=== PATIENT | female | born 1980 | race Caucasian/White ===

== ENCOUNTER 2022-03-28 19:08 | Inpatient (IN) | payer SELFPAY ==
[~2022-03-28] VITALS: Ht 162.6 cm; Wt 73.5 kg
[2022-03-28 19:12] VITALS: BP 147/89
--- NOTE | 2022-03-28 19:22 | NUR ---
STAT EKG in Triage room.
--- NOTE | 2022-03-28 19:27 | NUR ---
Given EKG to Dr. Arevalo to patrica.
--- NOTE | 2022-03-28 19:39 | NUR ---
PT TAKEN TO BED 5
--- NOTE | 2022-03-28 19:40 | NUR ---
RECEIVED IN BED 5 WITH C/O CP AND NOT GFEELING WELL X 3 DAYS. ATTACHED TO CM = SR OCCASIONAL PVC PMHx: Depression, Anxiety and HTN
--- NOTE | 2022-03-28 19:41 | NUR ---
Patient being evaluated by physician at bedside.
[2022-03-28] MEDS ORDERED: NITROGLYCERIN 2% 1 GM PKT TP ONE (19:45)
[2022-03-28] MEDS ORDERED: ASPIRIN 325 MG TAB PO ONE (19:45)
[2022-03-28] MEDS ORDERED: ENOXAPARIN 60 MG/0.6 ML SYR SUBQ ONE (19:45)
[2022-03-28] MEDS ORDERED: MORPHINE SULFATE 4 MG/ML SYR IVP ONE (19:45)
--- NOTE | 2022-03-28 20:09 | NUR ---
PCXR AT BEDSIDE
[2022-03-28 20:13] LABS: BASOPHILS # (AUTO) 0.1 K/uL (0.00-0.22); BASOPHILS % (AUTO) 0.7 % (0.0-2.0); EOSINOPHILS % (AUTO) 0.6 % (0.0-4.0); HEMATOCRIT 39.2 % (36-48); HEMOGLOBIN 13.6 g/dL (12.0-16.0); LYMPHOCYTES # (AUTO) 1.3 K/uL (2.5-16.5); LYMPHOCYTES % (AUTO) 18.7 % (20.5-51.1); MEAN CORPUSCULAR HEMOGLOBIN 37 pg (27-31); MEAN CORPUSCULAR HGB CONC 35 g/dL (33-37); MEAN CORPUSCULAR VOLUME 105.1 fL (80-94); MONOCYTES # (AUTO) 1.1 K/uL (0.8-1.0); MONOCYTES % (AUTO) 14.9 % (1.7-9.3); NEUTROPHILS # (AUTO) 4.6 K/uL (1.8-7.7); NEUTROPHILS % (AUTO) 65.1 % (42.2-75.2); PLATELET COUNT (AUTO) 237 K/uL (140-450); RED BLOOD CELL COUNT(AUTO) 3.73 MIL/uL (4.20-5.40); RED CELL DISTRIBUTION WIDTH 13.9 % (11.6-13.7)
[2022-03-28 20:26] LABS: CHOL/HDL RATIO 1.8 (1-4.5); HDL CHOLESTEROL 161 mg/dL (40-60); LDL (CALC) 117 mg/dL (60-100); TRIGLYCERIDES 61 mg/dL (30-150)
[2022-03-28 20:32] LABS: ALBUMIN 3.8 g/dL (3.4-5.0); ANION GAP 23.2 (8-16); CARBON DIOXIDE 20.8 mmol/L (21-32); CREATININE 0.8 mg/dL (0.6-1.3); TOTAL BILIRUBIN 0.6 mg/dL (0.0-1.0)
--- NOTE | 2022-03-28 22:30 | NUR ---
UP TO BSC, VOIDED, BACK TO BED
[2022-03-29] MEDS ORDERED: POTASSIUM CHLORIDE 10 MEQ TABER PO PRN
[2022-03-29] MEDS ORDERED: guaiFENesin DM 200/20 MG-10 ML 10 ML UDC PO PRN
[2022-03-29] MEDS ORDERED: ZOLPIDEM 5 MG TAB PO PRN
[2022-03-29] MEDS ORDERED: DOCUSATE SODIUM 100 MG GELCAP PO PRN
[2022-03-29] MEDS ORDERED: HYDROcodone/APAP 7.5/325 MG 1 TAB PO PRN
[2022-03-29] MEDS ORDERED: ACETAMINOPHEN 325 MG TAB PO PRN
--- NOTE | 2022-03-29 00:23 | NUR ---
CHANGED INTO GOWN, ASISTED WITH POSITIONING FOR COMFORT, WARM BLANKETS GIVEN. PT CONTINUES WITH C/O CHEST DISCOMFORT
--- NOTE | 2022-03-29 00:35 | NUR ---
C/O CONTINUED PAIN, MEDICATED ORDERED WITH NORCO 7.5
[2022-03-29] MEDS ORDERED: HYDROcodone/APAP 7.5/325 MG 1 TAB ONE (00:36)
[2022-03-29 00:47] LABS: PROTHROMBIN TIME 9.3 secs (10.8-13.4)
[2022-03-29 00:53] LABS: FREE T4 (FREE THYROXINE) 0.85 ng/dL (0.76-1.46); MAGNESIUM 1.6 mg/dL (1.8-2.4); PHOSPHORUS 1.6 mg/dL (2.5-4.9); THYROID STIMULATING HORMONE 5.39 uIU/mL (0.34-3.74)
--- NOTE | 2022-03-29 04:00 | NUR ---
AWAKE C/O NAUSEA, MEDICATED ORDERED
[2022-03-29] MEDS: ONDANSETRON 4 MG/2 ML VIAL IM/IVP PRN ×2 (05:16→09:22)
--- NOTE | 2022-03-29 06:00 | NUR ---
AWAKE, AMBULATED TO BR WITH STEADY GAIT
[2022-03-29] MEDS ORDERED: FLUO10CA21 PO (06:48)
[2022-03-29] MEDS ORDERED: LISI-487 PO (06:48)
--- NOTE | 2022-03-29 07:30 | NUR ---
REPORT RECEIVED FROM CORTES MARTELL. ASSUMED CARE AT THIS TIME
--- NOTE | 2022-03-29 08:00 | NUR ---
42YO FEMALE PT C/O SUDDEN CONSTANT TIGHT/BURNING 01/04 CHEST PAIN XYESTERDAY. STATES RELIEF SINCE BEING IN ER, PAIN PREVIOUSLY 04/06. ALSO C/O HEADACHE W/ MILD RELIEF AFTER TAKING TYLENOL. REPORTS N/V/D xYESTERDAY, DENIES BLOOD . DENIES PT AAOX4, RESPIRATIONS EVEN AND UNLABORED. HX: HTN ALLERGIES: PENICILLIN
--- NOTE | 2022-03-29 08:08 | NUR ---
pt provided w/ breakfast. pt awake and eating in bed
[2022-03-29] MEDS: NITROGLYCERIN 0.4 MG TAB SL PRN ×2 (08:33→08:44)
[2022-03-29] MEDS ORDERED: lisinopriL 5 MG TAB PO SCH (09:00)
[2022-03-29] MEDS ORDERED: METOPROLOL 25 MG TAB PO SCH (09:00)
[2022-03-29] MEDS ORDERED: ECOTRIN 81 MG TABEC PO SCH (09:00)
[2022-03-29] MEDS: PANTOPRAZOLE 40 MG TABEC PO SCH (09:10)
--- NOTE | 2022-03-29 09:14 | NUR ---
PATIENT HAS BEEN SCREENED AND CATEGORIZED MODERATE NUTRITION RISK. PATIENT WILL BE SEEN WITHIN 3-5 DAYS OF ADMISSION. 03/28/22-04/02/[address]
--- NOTE | 2022-03-29 11:13 | NUR ---
MD DONG AT BEDSIDE FOR EVALUATION
[2022-03-29] MEDS: ALPRAZolam 0.5 MG TAB PO PRN (11:52)
--- NOTE | 2022-03-29 13:00 | NUR ---
pt provided w/ lunch. pt awake, repositioned and eating in bed
[2022-03-29] MEDS: METOPROLOL 50 MG TAB PO SCH ×2 (13:55→21:20)
[2022-03-29] MEDS ORDERED: POTASSIUM CHLORIDE 10 MEQ TABER PO SCH ×2 (14:00→17:00)
--- NOTE | 2022-03-29 14:30 | NUR ---
per lani yee, would like like po potassium and dx. per md vallejo, consult but requesting we do not discharge.
--- NOTE | 2022-03-29 15:25 | NUR ---
Patient will be admitted to care of [facility]. Admited to TELE . Will go to room 119A. Belongings list completed. Report to ITALO MARTELL.
--- NOTE | 2022-03-29 15:35 | NUR ---
The patient's care was reviewed and supervised by Oksana Lujan, RN, RN.
[2022-03-29 16:45] VITALS: BP 164/83
[2022-03-29] MEDS ORDERED: ATORVASTATIN 20 MG TAB PO SCH (17:00)
--- NOTE | 2022-03-29 19:30 | NUR ---
RECEIVED PATIENT FROM DAY SHIFT NURSE ITALO. PATIENT IS A&O X4. PATIENT IS ON ROOM AIR, BREATHING IS NORMAL WITH SYMMETRICAL RISE AND FALL OF CHEST. IV IS 20G LAC, NO FLUIDS RUNNING (SALINE LOCKED). PATIENT IS AWAKE, LYING IN BED SUPINE. BED IS IN LOWEST POSITION, WHEELS LOCKED, CALL LIGHT IN PLACE. WILL CONTINUE TO OBSERVE PATIENT.
[2022-03-29 20:00] VITALS: BP 163/85
--- NOTE | 2022-03-29 21:30 | NUR ---
ADMINISTERED 2100 MEDICATION TO PATIENT. PATIENT'S HR WAS 63 AND BP WAS 163/85. MEDICATION IS APPROPRIATE TO GIVE. PATIENT TOLERATED MEDICATION WELL. PATIENT STATED THAT SHE WILL TRY AND GO TO SLEEP. BREATHING WAS NORMAL WITH SYMMETRICAL RISE AND FALL OF CHEST. WILL CONTINUE TO OBSERVE PATIENT.
[2022-03-30] VITALS: BP 165/79
--- NOTE | 2022-03-30 | NUR ---
0000 VITALS WERE OBTAINED BY DARREN FLEMING. VITALS WERE: TEMP 98.1, HR 110, BP 165/79, O2 98, RR 18. LOOKED IN ON PATIENT AT 2230, INFORMED PATIENT TO VOID IN URINE CUP NEXT TIME SHE URINATES FOR URINE ANALYSIS. PATIENT STATED SHE WOULD. WILL CONTINUE TO OBSERVE PATIENT.
--- NOTE | 2022-03-30 02:00 | NUR ---
LOOKED IN ON PATIENT. PATIENT WAS SLEEPING. URINE CUP WAS STILL BY PATIENT'S BEDSIDE. PATIENT'S BREATHING WAS NORMAL WITH SYMMETRICAL RISE AND FALL OF CHEST. WILL CONTINUE TO OBSERVE PATIENT.
[2022-03-30 04:00] VITALS: BP 158/83
--- NOTE | 2022-03-30 04:00 | NUR ---
SPOKE WITH PATIENT WHILE CASING TIER WAS OBTAINING VITALS. PATIENT STATED SHE VOIDED THREE TIMES. URINE CUP WAS EMPTY AND STILL NEXT TO BED. REMINDED PATIENT TO PLEASE USE URINE CUP NEXT TIME SHE VOIDS TO OBTAIN UA. PATIENT STATED SHE WILL. BREATHING WAS NORMAL WITH SYMMETRICAL RISE AND FALL OF CHEST. WILL CONTINUE TO OBSERVE PATIENT.
[2022-03-30 06:31] LABS: BASOPHILS % (AUTO) 0.3 % (0.0-2.0); EOSINOPHILS # (AUTO) 0.2 K/uL (0-0.4); EOSINOPHILS % (AUTO) 2.8 % (0.0-4.0); HEMATOCRIT 38.9 % (36-48); HEMOGLOBIN 13.4 g/dL (12.0-16.0); LYMPHOCYTES # (AUTO) 1.1 K/uL (2.5-16.5); LYMPHOCYTES % (AUTO) 15.9 % (20.5-51.1); MEAN CORPUSCULAR HEMOGLOBIN 37 pg (27-31); MEAN CORPUSCULAR HGB CONC 34 g/dL (33-37); MEAN CORPUSCULAR VOLUME 106.3 fL (80-94); MONOCYTES # (AUTO) 0.8 K/uL (0.8-1.0); MONOCYTES % (AUTO) 11.5 % (1.7-9.3); NEUTROPHILS # (AUTO) 4.6 K/uL (1.8-7.7); NEUTROPHILS % (AUTO) 69.5 % (42.2-75.2); PLATELET COUNT (AUTO) 221 K/uL (140-450); RED BLOOD CELL COUNT(AUTO) 3.66 MIL/uL (4.20-5.40); RED CELL DISTRIBUTION WIDTH 14.3 % (11.6-13.7); WHITE BLOOD COUNT (AUTO) 6.6 K/uL (4.8-10.8)
[2022-03-30 06:35] LABS: ANION GAP 14.3 (8-16); CARBON DIOXIDE 25.5 mmol/L (21-32); CREATININE 0.7 mg/dL (0.6-1.3); POTASSIUM 4.8 mmol/L (3.5-5.1)
--- NOTE | 2022-03-30 06:50 | NUR ---
OBTAINED PATIENT'S URINE SAMPLE FOR UA AND DRUG SCREEN. PATIENT WAS AWAKE IN BED AND UPSET, WORRIED ABOUT HEART CONDITION. PATIENT ASKED FOR ANXIETY MEDICATION. I TOLD PATIENT I WOULD CHECK.
--- NOTE | 2022-03-30 07:30 | NUR ---
ENDORSED TO DAY SHIFT NURSE PUCKETT FOR CONTINUITY OF CARE. PATIENT IS STABLE.
[2022-03-30] MEDS: ALPRAZolam 0.5 MG TAB PO PRN (07:51)
[2022-03-30 08:00] VITALS: BP 166/90
[2022-03-30] MEDS ORDERED: MAG SULF 2000 MG/WATER PREMIX 50 ML IV PRN (08:20)
[2022-03-30] MEDS: PANTOPRAZOLE 40 MG TABEC PO SCH (08:49)
[2022-03-30] MEDS: hydrALAZINE 20 MG/ML VIAL IVP PRN ×3 (08:50→14:50)
[2022-03-30] MEDS ORDERED: FLUoxetine 10 MG CAP PO SCH (09:00)
[2022-03-30] MEDS ORDERED: lisinopriL 5 MG TAB PO SCH (09:00)
[2022-03-30 09:06] LABS: T4 (THYROXINE) 7.3 ug/dL (4.5-12.0)
[2022-03-30] MEDS ORDERED: LOSARTAN 25 MG TAB PO SCH (10:20)
[2022-03-30 11:32] LABS: APPEARANCE,URINE CLEAR (CLEAR); BILIRUBIN,URINE NEGATIVE (NEGATIVE); BLOOD, URINE 1+ (NEGATIVE); COLOR,URINE YELLOW (YELLOW); LEUKOCYTE ESTERASE ,URINE NEGATIVE (NEGATIVE); NITRITE, URINE NEGATIVE (NEGATIVE); PH,URINE 6.5 (5.0-9.0); UGLUCOSE NEGATIVE (NEGATIVE)
[2022-03-30 11:43] LABS: OTHER CASTS, URINE None Seen /LPF (None Seen); WBC,URINE 0-5 /HPF (0-5)
[2022-03-30 12:00] VITALS: BP 120/78
[2022-03-30] MEDS ORDERED: METO25TA PO (12:03)
--- NOTE | 2022-03-30 13:00 | NUR ---
DC PLANNING SW MET WITH PATIENT AT BEDSIDE TO COMPLETE ASSESSMENT. PATIENT REPORTS RESIDING AT HOME WITH HER FAMILY AT THE ADDRESS LISTED ON FILE. PATIENT IDENTIFIED JULI PEARSON (PARTNER)[phone] AND RADHA NAJERA (SON)[phone] EMERGENCY CONTACT AND MDM. PATIENT DENIED AD IN PLACE AND ACCEPTED AD OFFERED BY SW. PATIENT REPORTS MEETING W/ PCP, DR AMIE ABEBE, CONSISTENTLY. LAST VISIT; MONTH AND HALF AGO . PATIENT REPORTS MEDICATION COMPLIANCE. PATIENT REPORTS OF RECENT, FACING BARRIERS IN ACCESS TO MEDICATION. SW TO PROVIDE PATIENT WITH MEDICATION ASSISTANCE RESOURCES. PATIENT REPORTS RECENTLY LOSING HER JOB, THEREFORE LOSING HER INSURANCE. PATIENT HAS BEEN REFERRED TO [facility]. PATIENT REPORTS ADEQUATE FOOD SOURCE AND DENIES BARRIERS IN ACCESS TO FOOD.PATIENT DECLINED JULES FRESH RESOURCES. PATIENT REPORTS BEING INDEPENDENT IN ALL ACTIVITIES AND DENIES USE OF DME. PATIENT COMPLETES ADL'S INDEPENDENTLY. PT DENIES MH HX. PATIENT REPORTS HX OF METH USE WHICH SHE REPORTS WAS RECREATIONAL AND ONLY DONE IN HER TEEN YEARS. PATIENT REPORTS HX OF ALCOHOL USE HOWEVER, REPORTS BEING SOBER FROM ALCOHOL USE, SINCE SHE WAS 34YRS OLD. PATIENT REPORTS SHE RECENTLY STOPPED SMOKING 4 MONTHS AGO. PATIENT REPORTS DC PLAN IS TO RETURN HOME WHEN CLINICALLY STABLE, WITH HER PARTNER OR SON PROVIDING TRANSPORTATION AND AIDING IN CARE, IF REQUIRED. SW INQUIRED ON ADDITIONAL RESOURCES NEEDED, PATIENT DECLINED.
[2022-03-30 14:04] VITALS: BP 120/78
--- NOTE | 2022-03-30 14:48 | NUR ---
Patient discharged and was given education on medications, disease process and all questions regarding discharge answered. Taken off the unit in wheeledchair and had no further needs.
[2022-03-30 14:50] VITALS: BP 113/78
[2022-03-30] MEDS ORDERED: LOSA100T1 PO (16:21)
[2022-03-30] MEDS ORDERED: ALPR0.5T2 PO (16:22)
[2022-03-30] MEDS ORDERED: METOPROLOL 25 MG TAB PO SCH (21:00)
[2022-03-31] MEDS ORDERED: METO25TA PO (11:25)
[2022-03-31] MEDS ORDERED: ALPR1TAB2 PO (11:26)
== END 2022-03-30 14:53 | disposition home or self-care (01) | DRG 313 ==
LOC: MED 19:08 → MTU 22:23
PROVIDERS: ADMIT Family Medicine; ATTEND Family Medicine
DX: R07.89 Other chest pain (principal); I10 Essential (primary) hypertension; F41.0 Panic disorder [episodic paroxysmal anxiety]; R74.01 Elevation of levels of liver transaminase levels; F39 Unspecified mood [affective] disorder; Z20.822 Contact with and (suspected) exposure to COVID-19; E78.2 Mixed hyperlipidemia; E87.6 Hypokalemia; Z88.0 Allergy status to penicillin; Z90.710 Acquired absence of both cervix and uterus; Z82.49 Family history of ischemic heart disease and other diseases of the circulatory system
CPT/HCPCS: 36415; 71045; 80048; 80053; 81001; 82150; 83036; 83690; 83735; 83880; 84100; 84436; 84439; 84443; 84479; 84484; 85025; 85379; 85610; 85730; 87081; 93005; 96372; 96374; 99285; J0360; J1650; J2270; J2405; J3475